=== PATIENT | female | born 1970 | race Caucasian/White ===

== ENCOUNTER 2019-12-27 10:22 | Emergency (ER) | payer OTHER ==
[~2019-12-27] VITALS: Ht 168.9 cm; Wt 75.6 kg
[2019-12-27 10:32] VITALS: BP 144/86
[2019-12-27] MEDS ORDERED: FLUORESCEIN 1MG EYE STRIP. ONE (11:37)
[2019-12-27] MEDS ORDERED: TETRACAINE 0.5% OPHTH SOLUTION 4ML BOTTLE. ONE (11:37)
[2019-12-27] MEDS ORDERED: KETO5DRO EACHEYE (12:01)
[2019-12-27] MEDS ORDERED: CIPR3.5O OP (12:01)
--- NOTE | 2019-12-27 12:03 | PHYS DOC ---
Past History Past Medical History: No Pertinent History Past Surgical History: No Surgical History Alcohol Use: None Adult General Chief Complaint Chief Complaint: EYE PROBLEMS HPI HPI Patient is a 49yo F who presents for right eye pain. Onset was <12 hours prior to arrival. PAtient reports waking from sleep and itching her eye with her hand. She tried to go back to sleep but continued to feel a foreign body sensation so she started to flush her eye with Renew eye drops. This did not provide any significant relief. PAtient tried sleeping but due to ongoing focal pain and irritation of right eye and difficulties with right lateral gaze, she reported to our ED for further evaluation. Review of Systems Review of Systems Positive for right eye pain without radiation, increased tear production, injection, redness, foreign body sensation, and history of contact use Negative for discharge, blurry vision past baseline, actual pain with EOM Fourteen body systems reviewed. See HPI for pertinent positives and negative responses, other otero all other systems are negative, non pertinent or non contributory Current Medications Current Medications Current Medications Medications (Trade) Dose Ordered Sig/Rosalia Start Time Stop Time Status Last Admin Dose Admin Fluorescein Sodium (Ful-Jihan 1mg) 1 strip STK-MED ONCE 12/27/19 11:37 12/27/19 11:37 DC Tetracaine HCl (Tetracaine) 40 drop STK-MED ONCE 12/27/19 11:37 12/27/19 11:37 DC Allergies Allergies Allergies Coded Allergies Type Severity Reaction Last Updated Verified albuterol Allergy Unknown 12/27/19 Yes nitrofurantoin Allergy Unknown 12/27/19 Yes Physical Exam Physical Exam Constitutional: Well developed, well nourished, no acute distress, non-toxic appearance. [] HENT: Normocephalic, atraumatic, bilateral external ears normal, oropharynx moist, no oral exudates, nose normal. [] Eyes: Eye exam: The patient was examined with the slit lamp. Extraocular movements are intact without pain or obvious defect Pupils are equally round and reactive to light PERRLA, no discharge, injection to right eye only, no apparent foreign bodies Visual acuity: 20/50 bilaterally with glasses, 20/50 Lt, 20/50 Rt Eyelids/under eyelids: normal Sclera: normal Corneas: negative Amy sign. Florescene uptake noted with classical appearance of corneal abrasion to lateral portion of cornea just lateral to border of iris, Anterior chambers: normal without cell, flare, or hyphema Eye pressures (tonometer): left eye 13 Neck: Normal range of motion, no tenderness, supple, no stridor. [] Cardiovascular:Heart rate regular rhythm, no murmur [] Lungs & Thorax: Bilateral breath sounds clear to auscultation [] Abdomen: Bowel sounds normal, soft, no tenderness, no masses, no pulsatile masses. [] Skin: Warm, dry, no erythema, no rash. [] Back: No tenderness, no CVA tenderness. [] Extremities: No tenderness, no cyanosis, no clubbing, ROM intact, no edema. [] Neurologic: Alert and oriented X 3, normal motor function, normal sensory function, no focal deficits noted. [] Psychologic: Affect normal, judgement normal, anxious mood [] Current Patient Data Vital Signs Vital Signs Date Time Temp Pulse Resp B/P (MAP) Pulse Ox O2 Delivery O2 Flow Rate FiO2 8/2/20 10:32 97.7 63 16 144/86 (105) 100 Room Air EKG EKG [] Radiology/Procedures Radiology/Procedures [] Course & Med Decision Making Course & Med Decision Making Vitals signs normal History and mechanism of injury concerning for corneal abrasion, physical exam confirmed this finding I have low suspicion for corneal ulcer, globe rupture, uveitis, HSV keratitis, Endopthalmitis, Retinal Detachment, Angle Closure Glaucoma, Foreign Body. RX Cipro ointment for opthalmic use to cover for pseudomonas given history of contact use. Also RX opthalmic NSAID for short-term PRN pain control ED course and plan of care discussed, patient agreeable to this with close PCP and Optho follow up within 48 hours Strict return precautions discussed with good understanding by patient, all questions and concerns addressed prior to departure Dragon Disclaimer Dragon Disclaimer This electronic medical record was generated, in whole or in part, using a voice recognition dictation system. Departure Departure: Impression: Primary Impression: Right corneal abrasion Disposition: 01 HOME/RESIDENCE PRIOR TO ADM Condition: STABLE Referrals: PCP,NO (PCP) As discussed prior to ED departure, please contact your PCP to arrange ophthalmology follow-up in upcoming 2 to 14 days for follow-up Patient Instructions: Eye - Corneal Abrasion Scripts Ketorolac Tromethamine (ACULAR) 5 Ml Drops 1 DROP EACHEYE QID for Corneal Abrasion for 2 Days, #10 ML 2 Refills Prov: CLARICE LUJAN DO 12/27/19 Ciprofloxacin Hcl (CILOXAN) 3.5 Gm Oint...g. 3.5 GM OP TID for corneal abrasion for 5 Days, MISC 0.5 inch (1.25 cm) ribbon, four times per day for five days Prov: CLARICE LUJAN DO 12/27/19 Justification of Admission: Justification of Admission: Justification of Admission Dx: N/A CLARICE LUJAN DO Dec 27, 2019 12:03
[2019-12-27] MEDS ORDERED: ACETAMINOPHEN 500 MG TABLET PO ONE (12:15)
== END 2019-12-27 12:10 | disposition home or self-care (01) ==
LOC: ER 10:22
DX: S05.01XA Injury of conjunctiva and corneal abrasion without foreign body, right eye, initial encounter (principal); Z88.8 Allergy status to other drugs, medicaments and biological substances; X58.XXXA Exposure to other specified factors, initial encounter; Y93.89 Activity, other specified; Y92.89 Other specified places as the place of occurrence of the external cause; Y99.8 Other external cause status
CPT/HCPCS: 99283

== ENCOUNTER → 2020-12-23 | Outpatient (CLI) | payer OTHER ==
[~2020-12-23] MED LIST: CIPR3.5O OP; KETO5DRO EACHEYE; MULT-445 PO; allegra PO; flonase INH; vitamin b; vitamin d3 PO
== END ==
LOC: LAB 07:55
PROVIDERS: ATTEND Nurse Anesthetist, Certified Registered
DX: Z01.812 Encounter for preprocedural laboratory examination (principal); Z20.822 Contact with and (suspected) exposure to COVID-19; Z12.11 Encounter for screening for malignant neoplasm of colon
CPT/HCPCS: U0003; U0005